=== PATIENT | female | born 1960 | race Caucasian/White ===

== ENCOUNTER 2018-09-30 16:06 | Outpatient (CLI) ==
--- NOTE | 2018-09-30 16:50 | DI ---
EXAM: Two views of the chest. History: Short of breath and cough. Comparison: Chest radiograph 01/24/2016 Findings: Heart size is normal. No focal consolidation. No appreciable pleural fluid and no pneumo thorax. No acute osseous abnormalities. Impression: No acute cardiopulmonary process.
--- NOTE | 2018-10-01 06:48 | DI ---
EXAM: Thoracic spine radiographs. HISTORY: Back pain. COMPARISON: None available. TECHNIQUE: Frontal, lateral and swimmer's views. FINDINGS: The normal curvature and alignment are maintained. Vertebral body and intervertebral disc heights are normal. Mild multilevel endplate osteophyte formation noted, greatest at T11-12. No fr acture or subluxation seen. Adjacent soft tissues are unremarkable. IMPRESSION: Mild degenerative disc disease.
--- NOTE | 2018-10-01 06:49 | DI ---
EXAM: Lumbar spine radiographs. HISTORY: Back pain. COMPARISON: None available. TECHNIQUE: Three views of the lumbar spine. FINDINGS: The normal curvature and alignment are maintained. Vertebral body and intervertebral disc heights are normal. No fracture or subluxation identified. Multilevel facet arthropathy noted, mod erate in the lower lumbar spine. Sacral arcuate lines are intact. Soft tissues are unremarkable. IMPRESSION: Multilevel facet arthropathy, moderate in the lower lumbar spine.
== END 2018-09-30 16:07 | disposition home or self-care (01) ==
LOC: RAD 16:06
PROVIDERS: ATTEND Internal Medicine
DX: R06.02 Shortness of breath (principal); R05 Cough

== ENCOUNTER 2018-10-03 14:02 | Observation (INO) ==
[2018-10-03] MEDS ORDERED: TYLENOL PO PRN (14:45)
[2018-10-03] MEDS ORDERED: VISTARIL INJ IM PRN (14:45)
[2018-10-03] MEDS ORDERED: ATROPINE SULFATE PFS IVP PRN (14:45)
[2018-10-03] MEDS ORDERED: NITROSTAT SL PRN (14:45)
[2018-10-03 15:11] VITALS: BMI 20.7
[2018-10-03] MEDS: PROTONIX PO SCH ×2 (16:22→17:43)
[2018-10-03] MEDS: SODIUM CHLORIDE 1,000 ML IV SCH (16:22)
--- NOTE | 2018-10-03 16:51 | CT ---
EXAM: CT chest with and without contrast HISTORY: Shortness of breath COMPARISON: Chest x-ray 09/30/2018 and 01/24/[address] abdomen pelvis TECHNIQUE: Serial axial images of the chest were obtained after and before 75 ml of Omnipaque IV con trast was administered. These were obtained from the lung apices to the upper abdomen. FINDINGS: The thyroid is normal. Visualized vessels demonstrate mild atherosclerotic disease. Ther e is no dissection, aneurysm or stenosis. The heart is normal in size without pericardial effusion. There is no mediastinal, hilar or axillary pathologically enlarged lymph nodes. There are calcified mediastinal and hilar lymph nodes. There is no pneumothorax or pleural effusion. There is a 0.5 cm pulmonary nodule in the anterior rig ht upper lobe on image 35. These there is minimal fibrosis in the right lung base. There is mild ce ntral lobular ground-glass nodularity in the right lower lobe on image 37. There is no additional co nsolidation, nodule or mass. The airways are patent. Soft tissues in the upper abdomen will be evaluated on same day CT abdomen pelvis. There is mild sc attered degenerative disease of the spine. There is no new displaced rib fracture. IMPRESSION: 1. Central lobular ground-glass nodularity in the right lower lobe with minimal fibrosis suggestive of small airways inflammation. 2. 0.5 pulmonary nodule in the anterior right upper lobe. Recommend follow-up CT in 6 months. 3. Sequela of old granulomatous disease and mild scattered degenerative change.
[2018-10-03] MEDS: ATIVAN PO PRN (18:20)
--- NOTE | 2018-10-04 01:03 | CT ---
Exam: CT of the abdomen and pelvis without and with contrast History: Nausea Technique: [address] of the abdomen and pelvis pre and post intravenous contrast FINDINGS: The lung bases are clear. No significant liver abnormality. The adrenals, pancreas and s pleen are unremarkable. The stomach and hiatus are unremarkable.The gallbladder appears normal. Kid neys and proximal collecting system are unremarkable. The appendix is not seen. Bowel loops demonst rate normal caliber. No inflamatory change seen in the mesentery or retroperitoneum. Vascular struc tures appear normal. Pelvic genitourinary structures appear normal. Trace pelvic fluid. Pelvic bowel loops are unremarka ble. No inflammatory change in the pelvic fat. No acute abnormality of the abdominal or pelvic skel eton. Impression: 1. No inflammatory process, bowel or urinary obstruction is seen. 2. Trace pelvic fluid is nonspecific
[2018-10-04] MEDS: SYNTHROID PO SCH (05:38)
[2018-10-04] MEDS: PROTONIX PO SCH ×2 (05:38→18:18)
[2018-10-04] MEDS: ASPIRIN EC PO SCH (08:48)
[2018-10-04] MEDS: SYMBICORT 80-4.5 MCG INHALER IH SCH ×2 (08:49→21:01)
--- NOTE | 2018-10-04 08:51 | PCM.PROG ---
Attending Provider: ATTENDING PROVIDER: Dr. TRAVIS PENN DATE OF SERVICE: 10/04/18 SUBJECTIVE: This 57 year old WHITE/ F was hospitalized 10/03/18 with shortness of breath, inability to take deep breaths at times give her a panic type of problem and she gets really worked up. No PND, no orthopnea. No exertional chest discomfort. No fever, no chills. No cough. is in the room. REVIEW OF SYSTEMS: CONSTITUTIONAL: No night sweats. No fatigue, malaise, lethargy. No fever or chills. HEENT: Eyes: No visual changes. No eye pain. No eye discharge. ENT: No runny nose. No epistaxis. No sinus pain. No odynophagia. No congestion. RESPIRATORY: No cough, no congestion. No hemoptysis. No shortness of breath. CARDIOVASCULAR: No angina symptoms. No CHF symptoms. No atypical chest pain for CAD. No palpitations. No orthopnea.. GASTROINTESTINAL: No abdominal pain. No nausea or vomiting. No diarrhea or constipation. No hematemesis. No hematochezia. GENITOURINARY: No urgency. No frequency. No dysuria. No hematuria. No obstructive symptoms. No discharge. No pain. No significant abnormal bleeding. MUSCULOSKELETAL: No musculoskeletal pain; no joint swelling. NEUROLOGICAL: Awake, alert, oriented to time, place and person. No headache. No neck pain. No syncope. No seizures. No dizziness. PSYCHIATRIC: Not anxious. No depression. No suicidal thoughts. No homicidal thoughts. SKIN: No rash. No lesions. No wounds. ENDOCRINE: No unexplained weight loss. No weight gain. HEMATOLOGIC/LYMPHATIC: No anemia. No purpura. No petechiae. No prolonged or excessive bleeding. No palpable lymph nodes. PHYSICAL EXAMINATION: GENERAL: The patient is awake, alert and oriented, lying in bed in no distress. VITAL SIGNS: Temperature 97.9 F, Pulse 57, Respiratory Rate 18, BP 100/63, Pulse Ox 99% HEENT: Head normocephalic, atraumatic. Eyes: Extraocular muscles are intact. Pupils are equal, round and reactive to light and accommodation. Ears: No lesions. Nose appeared normal. Throat: No exudate or erythema. NECK: Supple. No JVD, no carotid bruit. No lymphadenopathy or thyromegaly. LUNGS: Decreased breath sounds. Clear to auscultation. Percussion note normal. Chest symmetrical. HEART: S1, S2, no S3. No murmurs. No cyanosis or clubbing. No ascites. Pulses: Dorsalis pedis and posterior tibial pulses +1 to +2 both sides. ABDOMEN: Soft. Non-tender. Bowel sounds active. No CVA tenderness. No mass felt. EXTREMITIES: No edema. Full range of motion of all extremities, equal. NEUROLOGIC: No focal deficit. Cranial nerves II through XII are grossly intact. No headache, no double vision or headache. SKIN: Warm and dry. Intact. Turgor-normal. LYMPHATIC: No palpable lymph nodes/no lymphedema. MUSCULOSKELETAL: Normal joints with no swelling. Muscle tone is normal. LAB REVIEW: 10/04/18 05:06 10/04/18 05:06 10/04/18 05:06: Sodium 142.6, Potassium 3.98, Chloride 107.4 H, Carbon Dioxide 27.5, Anion Gap 11.68, BUN 14.3, Creatinine 0.63, Estimated GFR (MDRD) 97.00, BUN/Creatinine Ratio 22.69, Glucose 87.3, Calcium 9.36, Total Bilirubin 1.02, AST 22.8, ALT 17.7, Alkaline Phosphatase 58.5, Total Protein 6.49, Albumin 3.95 , Globulin 2.54, Albumin/Globulin Ratio 1.55 10/04/18 05:06: WBC 3.99 L, RBC 4.30, Hgb 12.8, Hct 37.9, MCV 88.1, MCH 29.8, MCHC 33.8, RDW Coeff of Vandana 11.9, Plt Count 175, Immature Gran % (Auto) 0.3, Neut % (Auto) 56.6, Lymph % (Auto) 31.8, [place] % (Auto) 6.8, Eos % (Auto) 4.0, Baso % (Auto) 0.5, Immature Gran # (Auto) 0.0, Neut # (Auto) 2.3, Lymph # (Auto ) 1.3, [place] # (Auto) 0.3 L, Eos # (Auto) 0.2, Baso # (Auto) 0.0 10/03/18 23:02: Total Creatine Kinase 101.3, Troponin I < 0.012 10/03/18 15:37: Urine Color Yellow, Urine Clarity Clear, Urine pH 5.0, Ur Specific [place] 1.020, Urine Protein Negative, Urine Glucose (UA) Negative, Urine Ketones 3+, Urine Blood Negative, Urine Nitrite Negative, Urine Bilirubin Negative, Urine Urobilinogen 0.2, Ur Leukocyte Esterase Negative 10/03/18 15:05: D-Dimer (Manual) 392.01 10/03/18 15:05: Sodium 142.5, Potassium 3.58, Chloride 106.1, Carbon Dioxide 25.9, Anion Gap 14.08, BUN 14.7, Creatinine 0.65, Estimated GFR (MDRD) 94.00, BUN/Creatinine Ratio 22.61, Glucose 93.5, Calcium 9.54, Total Bilirubin 1.05, AST 27.0, ALT 19.4, Alkaline Phosphatase 72.0, Total Creatine Kinase 118.5, CK- MB (CK-2) 4.220 H, CK-MB (CK-2) % 3.5600, Troponin I < 0.012, NT-Pro-B Natriuret Pep 109.000, Total Protein 7.23, Albumin 4.53, Globulin 2.70, Albumin/ Globulin Ratio 1.67, TSH 0.182 L 10/03/18 15:05: WBC 4.86, RBC 4.72, Hgb 14.0, Hct 41.1, MCV 87.1, MCH 29.7, MCHC 34.1, RDW Coeff of Vandana 11.8, Plt Count 198, Immature Gran % (Auto) 0.2, Neut % (Auto) 69.4, Lymph % (Auto) 23.3, [place] % (Auto) 5.1, Eos % (Auto) 1.6, Baso % (Auto) 0.4, Immature Gran # (Auto) 0.0, Neut # (Auto) 3.4, Lymph # (Auto ) 1.1, [place] # (Auto) 0.3 L, Eos # (Auto) 0.1, Baso # (Auto) 0.0 10/03/18 15:05: Free T4 1.[address] with and without contrast 10/03/18: 1) Central lobular ground glass nodularity in the right lower lobe with minimal fibrosis suggestive of small airways inflammation; 2) 0.5 pulmonary nodule in the anterior right upper lobe. Recommend followup CT in 6 months; 3) Sequela of old granulomatous disease and mild scattered degenerative change. CT of the abdomen and pelvis with and without contrast 10/03/18: 1) No inflammatory process, bowel or urinary obstruction is seen; 2) Trace pelvic fluid is nonspecific. ASSESSMENT: 1. Shortness of breath could be related to lung problem with emphysema along with panic attack, GERD type of symptoms. 2. Cancer phobia. 3. Hypothyroidism. PLAN: 1. Waiting on echocardiogram and PFT reports. 2. Barium swallow. 3. PFT. 4. Symbicort two puffs now and b.i.d. Plan and coordination of the patient's care discussed in the presence of Speech And Language Specialist and nurse. CONDITION: Stable SCRIBED BY: WAYLON RIVERA [facility] scribed while in presence of service performed by Dr. TRAVIS PENN on 10/04/18 ([id number])
[2018-10-04] MEDS: SODIUM CHLORIDE 1,000 ML IV SCH (11:12)
--- NOTE | 2018-10-04 11:16 | HP ---
DATE OF SERVICE: 10/03/18 HISTORY OF PRESENT ILLNESS: This 57-year-old female presented to the office to review chest x-ray , and T-spine x-rays. She is very short of breath today, couldn't walk 10 feet without stopping. Ativan not helping. No dysphagia. PAST MEDICAL HISTORY: Panic disorder Hypothyroidism Anemia JUAN Insomnia Dyslipidemia PAST SURGICAL HISTORY: Lymph nodes removed - cat bite virus REVIEW OF SYSTEMS: CONSTITUTIONAL: Fatigue. No fever. HEENT: Positive for sinus drainage. No sore throat. RESPIRATORY: No cough. No hemoptysis. CARDIOVASCULAR: Shortness of breath. No atypical chest pain for coronary artery disease. No angina, CHF symptoms or palpitations. GASTROINTESTINAL: Epigastric pain. No melena. No GERD. GENITOURINARY: No hematuria, no prostatism, no polyuria. SKILLS INSTRUCTOR: No blackout, no dizziness, no headache, no double vision. MUSCULOSKELETAL: No osteoarthritis pain, no joint swelling. ENDOCRINE: No weight loss, no weight gain. SKIN: Not dry, no rash. PSYCHIATRIC: Anxious. No depression, no suicidal thoughts, no homicidal thoughts. SOCIAL HISTORY: Marital Status: and lives with . Alcohol Usage: Occasional wine . Tobacco Usage: Nonsmoker. Two children. No history of illicit drug use. FAMILY HISTORY: Father and mother both living. MEDICATIONS: Ativan 0.5 mg p.o. b.i.d. p.r.n. Synthroid Tramadol 50 mg 1-2 h.s. Klonopin 0.5 mg 1-2 h.s. Synthroid 50 mcg second week Niferex 50 mg b.i.d. ALLERGIES: CODEINE, PERCOCET MENSTRUAL HISTORY: Mammogram 09-19 [facility] Department PHYSICAL EXAMINATION: V/S: Pulse 73, BP 102/66, 02 sat 98%. Height 5'4", Weight 118.6. BMI 20.3. GENERAL APPEARANCE: Oriented times three. HEENT: Normal. NECK: No JVP, no bruits. RESPIRATORY: Decreased breath sounds. Lungs are clear. CARDIOVASCULAR: S1, S2, no S3, no murmurs. No cyanosis, clubbing. No ascites. GI/ABDOMEN: Epigastric tenderness. Bowel sounds are active. EXTREMITIES: edema, pulses +1, equal. SKILLS INSTRUCTOR: Deep tendon reflexes, sensory, motor and gait all normal. RECTAL/PELVIC: .Colonoscopy - patient refused. Pelvic: [facility] 09/19. Mammogram 2013. Colocare: The patient refused. ASSESSMENT: 1. SHORTNESS OF BREATH 2. ANXIETY 3. PANIC DISORDER 4. HYPOTHYROIDISM 5. ANEMIA 6. JUAN 7. INSOMNIA 8. DYSLIPIDEMIA PLAN: 1. Admit 2. Routine telemetry orders 3. CBC, CMP today and daily 4. CT chest, abdomen and pelvis with and without 5. T4 and TSH 6. Ativan 1 mg p.o t.i.d. p.r.n. 7. Echocardiogram 2D 8. NS IV @ 50 cc/hr 9. Regular diet 10. Protonix 40 mg b.i.d. p.o. 11. D. Dimer 12. BNP 13. PFT TIME SPENT: More than 70 minutes. MTDD
[2018-10-04] MEDS: ATIVAN PO PRN ×2 (12:05→21:01)
[2018-10-04] MEDS ORDERED: DECADRON 4 MG/ML SDV IM STA (13:07)
[2018-10-04] MEDS ORDERED: GI COCKTAIL PO PRN (13:13)
[2018-10-05] MEDS: PROTONIX PO SCH (06:04)
[2018-10-05] MEDS: SYNTHROID PO SCH (06:04)
[2018-10-05] MEDS: SODIUM CHLORIDE 1,000 ML IV SCH (07:23)
[2018-10-05] MEDS: SYMBICORT 80-4.5 MCG INHALER IH SCH (08:27)
[2018-10-05] MEDS: ATIVAN PO PRN (08:27)
[2018-10-05] MEDS: ASPIRIN EC PO SCH (08:27)
[2018-10-05] MEDS ORDERED: LEXAPRO PO SCH ×2 (09:00→21:00)
[2018-10-05] MEDS ORDERED: ZANTAC PO SCH (09:00)
--- NOTE | 2018-10-05 09:28 | PCM.PROG ---
Attending Provider: ATTENDING PROVIDER: Dr. TRAVIS EPNN This patient is seen with Jesi Arana, Nurse Practitioner. DATE OF SERVICE: 10/05/18 SUBJECTIVE: This 57 year old WHITE/ F was hospitalized 10/03/18. The patient is sitting in bed resting comfortably. She is still very anxious. Shortness of breath has improved with exertion. She still describes not being able to take a deep breath. She is scheduled for upper GI this morning. The patient's is in the room. REVIEW OF SYSTEMS: CONSTITUTIONAL: No night sweats. No fatigue, malaise, lethargy. No fever or chills. HEENT: Eyes: No visual changes. No eye pain. No eye discharge. ENT: No runny nose. No epistaxis. No sinus pain. No odynophagia. No congestion. RESPIRATORY: Shortness of breath. No cough, no congestion. No hemoptysis. CARDIOVASCULAR: No angina symptoms. No CHF symptoms. No atypical chest pain for CAD. No palpitations. No orthopnea.. GASTROINTESTINAL: No abdominal pain. No nausea or vomiting. No diarrhea or constipation. No hematemesis. No hematochezia. GENITOURINARY: No urgency. No frequency. No dysuria. No hematuria. No obstructive symptoms. No discharge. No pain. No significant abnormal bleeding. MUSCULOSKELETAL: No musculoskeletal pain; no joint swelling. NEUROLOGICAL: Awake, alert, oriented to time, place and person. No headache. No neck pain. No syncope. No seizures. No dizziness. PSYCHIATRIC: Anxious. No depression. No suicidal thoughts. No homicidal thoughts. SKIN: No rash. No lesions. No wounds. ENDOCRINE: No unexplained weight loss. No weight gain. HEMATOLOGIC/LYMPHATIC: No anemia. No purpura. No petechiae. No prolonged or excessive bleeding. No palpable lymph nodes. PHYSICAL EXAMINATION: GENERAL: The patient is awake, alert and oriented, lying in bed in no distress. VITAL SIGNS: Temperature 98.1 F, Pulse 64, Respiratory Rate 18, BP 105/65, Pulse Ox 98% HEENT: Head normocephalic, atraumatic. Eyes: Extraocular muscles are intact. Pupils are equal, round and reactive to light and accommodation. Ears: No lesions. Nose appeared normal. Throat: No exudate or erythema. NECK: Supple. No JVD, no carotid bruit. No lymphadenopathy or thyromegaly. LUNGS: Clear to auscultation. Percussion note normal. Chest symmetrical. HEART: S1, S2, no S3. No murmurs. No cyanosis or clubbing. No ascites. Pulses: Dorsalis pedis and posterior tibial pulses +1 to +2 both sides. ABDOMEN: Soft. Non-tender. Bowel sounds active. No CVA tenderness. No mass felt. EXTREMITIES: No edema. Full range of motion of all extremities, equal. NEUROLOGIC: No focal deficit. Cranial nerves II through XII are grossly intact. No headache, no double vision or headache. SKIN: Not dry. Intact. Turgor-normal. LYMPHATIC: No palpable lymph nodes/no lymphedema. MUSCULOSKELETAL: Normal joints with no swelling. Muscle tone is normal. LAB REVIEW: 10/05/18 04:54 10/05/18 04:54 10/05/18 04:54: Sodium 142.9, Potassium 3.81, Chloride 110.5 H, Carbon Dioxide 24.5, Anion Gap 11.71, BUN 11.7, Creatinine 0.59 L, Estimated GFR (MDRD) 105.00 , BUN/Creatinine Ratio 19.83, Glucose 89.6, Calcium 9.38, Total Bilirubin 0.85, AST 21.4, ALT 16.6, Alkaline Phosphatase 61.3, Total Protein 6.45, Albumin 3.88 , Globulin 2.57, Albumin/Globulin Ratio 1.50 10/05/18 04:54: WBC 6.53, RBC 4.20, Hgb 12.5, Hct 36.7 L, MCV 87.4, MCH 29.8, MCHC 34.1, RDW Coeff of Vandana 11.8, Plt Count 185, Immature Gran % (Auto) 0.3, Neut % (Auto) 75.5, Lymph % (Auto) 18.4, [place] % (Auto) 5.2, Eos % (Auto) 0.3, Baso % (Auto) 0.3, Immature Gran # (Auto) 0.0, Neut # (Auto) 4.9, Lymph # (Auto ) 1.2, [place] # (Auto) 0.3 L, Eos # (Auto) 0.0, Baso # (Auto) 0.0 ASSESSMENT: 1. Shortness of breath could be related to lung problem with emphysema along with panic attack, GERD type of symptoms. 2. Cancer phobia. 3. Hypothyroidism. PLAN: 1. Upper GI today 2. Decrease Synthroid to 75 mcg. 3. Zantac 150 mg b.i.d. 4. H. pylori 5. Lexapro 5 mg daily for one week then increase to 10 mg daily Plan and coordination of the patient's care discussed in the presence of Supervisor Baking and nurse. CONDITION: Stable SCRIBED BY: WAYLON RIVERA Die Maker Apprentice scribed while in presence of service performed by Dr. Penn/Jesi Arana APRN on 10/05/18 ([id number])
--- NOTE | 2018-10-05 11:05 | DI ---
EXAM: Fluoroscopic upper GI HISTORY: GERD and shortness of breath. COMPARISON: CT abdomen pelvis 10/03/2018 FINDINGS: Real time fluoroscopic evaluation was performed by Dr. Viraj Villareal. Effervescent reyna ls were administered to patient. Fluoroscopic evaluation demonstrates a normal stripping wave. There is no filling defect, mass or stenosis. There is normal passage of contrast from the distal esophag us into the stomach. There is no visualized mass or abnormality in the stomach. Contrast passes int o the duodenum and crosses midline without evidence of malrotation. There is no visualized gastroeso phageal reflux. IMPRESSION: 1. No gastroesophageal reflux is present. 2. No fluoroscopic abnormality of the esophagus and no evidence of malrotation.
--- NOTE | 2018-10-05 13:08 | ECHOSTRESS ---
Date of Exam: 10/05/18 Ordering Physician: DR. TRAVIS PENN Reason for Echo: SOB, STRESS TEST--NO ISCHEMIA M-Mode Normal Adult Results LV Dimensions Normal Adult Results AoV Opening excursions >1.6 LVEDD-base- 3.5-5.8 Ao root dimensions 2.0-3.7 LVESD-base- 3.1-4.6 L. Atrium dimensions 1.9-3.8 Post. Wall thickness 0.8-1.1 IV septum (thickness) 0.7-1.2 Post. Wall excursion 0.72-1.3 Septal motion Systolic motion R. Ventricular cavity 1.5-2.0 LVEF 60% Paradoxical septal wall motion 2-D: NORMAL LEFT VENTRICULAR CONTRACTILITY--RESTING AND POST EXERCISE M-MODE: MV: AV: TV: PV: CHAMBER SIZE: WALL MOTION: NORMAL LEFT VENTRICULAR CONTRACTILITY--RESTING AND POST EXERCISE PERICARDIUM: INTERPRETATION: 1. NORMAL LEFT VENTRICULAR CONTRACTILITY--RESTING AND POST EXERCISE MTDD
--- NOTE | 2018-10-05 13:15 | ECHO2D ---
Date of Exam: 10/05/18 Ordering Physician: DR. TRAVIS PENN Room #: [id number] Reason for Echo: SOA, ANXIETY M-Mode Normal Adult Results LV Dimensions Normal Adult Results AoV Opening excursions >1.6 >1.6 LVEDD-base- 3.5-5.8 4.0 Ao root dimensions 2.0-3.7 3.1 LVESD-base- 3.1-4.6 L. Atrium dimensions 1.9-3.8 3.6 Post. Wall thickness 0.8-1.1 0.9 IV septum (thickness) 0.7-1.2 1.0 Post. Wall excursion 0.72-1.3 NORMAL Septal motion NORMAL Systolic motion R. Ventricular cavity 1.5-2.0 NORMAL LVEF 60% 62% Paradoxical septal wall motion NORMAL 2-D : 2-D M Mode Echocardiogram was performed using apical four chamber and left parasternal long and short axis views. Mitral Valve Prolapse noted. Tricuspid and aortic valves appear to be normal. Contractility of the left ventricle seems to be normal, so is the cavity size. Left atrial cavity size and aortic root appear to be normal. There is no pericardial effusion. There is no thrombus noted in the left ventricular or left aortic cavity. No mitral valve prolapse noted. M-MODE: MV: MITRAL VALVE PROLAPSE LATE SYSTOLIC AV: NORMAL TV: NORMAL PV: CHAMBER SIZE: NORMAL WALL MOTION: NORMAL PERICARDIUM: NORMAL INTERPRETATION: 1. MITRAL VALVE PROLAPSE LATE SYSTOLIC 2. NORMAL LEFT VENTRICULAR CONTRACTILITY 3. NORMAL VALVES MTDD
--- NOTE | 2018-10-05 13:21 | STRESSECHO ---
Date of Test: 10/05/18 Ordering Physician: DR. TRAVIS PENN Occupation: RETIRED Reason for Exam: SOB, ANXIETY Smoking History: NONE Height: 64" Weight: 120 LBS Current Medications: ATROPINE, SYMBICORT, LEXAPRO, VISTARIL, SYNTHROID, ATIVAN, NITROSTAT, PROTONIX, ZANTAC Resting EKG: SINUS RHYTHM/ NO ACUTE CHANGES Target Heart Rate: 137/162 S-T SEGMENT STAGE MPH/GRADE HEART RATE BPM BLOOD PRESSURE MMHG RHYTHM +/- ELEVATION DEPRESSION SYMPTOMS AT REST 68 BPM 120/80 MMHG SR X NONE 1 1.7/10% 109 BPM 120/76 MMHG SR X NONE 2 2.5/12% 132/74 MMHG SR X NONE 3 3.4/14% 4 4.2/16% 5 5.0/18% Immediately After 137 BPM 136/74 MMHG SR X REACHED TARGET HR Minutes Post Exercise 4:00 70 BPM 120/80 MMHG SR X NONE Minutes Post Exercise DURATION OF EXERCISE: 7:42 MAXIMUM HEART RATE REACHED: 137 BPM REASON FOR TERMINATION: REACHED TARGET HR 98% OXYGEN SATURATION WITH EXERCISE ON ROOM AIR METS 10.1 INTERPRETATION: 1. NO EVIDENCE OF ISCHEMIA BY ST-T WAVE 2. NO CHEST PAIN OR DISCOMFORT 3. BLOOD PRESSURE RESPONSE NORMAL 4. NO ARRHYTHMIAS NORMAL LEFT VENTRICULAR CONTRACTILITY--RESTING AND POST EXERCISE MTDD
--- NOTE | 2018-10-05 14:31 | CM.DICTOOL ---
ADMISSION: 10/03/18 14:02 DISCHARGE: 10/05/18 DATE OF SERVICE: 10/05/18 FINAL DIAGNOSIS EMPHYSEMA/PULMONARY FIBROSIS LUNG NODULE 0.5 CM, ANTERIOR RIGHT UPPER LOBE SHORTNESS OF BREATH ANXIETY/PANIC HYPOTHYROIDISM MITRAL VALVE PROLAPSE LYMPH NODE REMOVAL, LEFT ARM, 2018 (FROM INSECT BITE) BILATERAL LASIK SURGERY NEVER SMOKER LAST VITALS Temp Pulse Resp BP Pulse Ox 98.1 F 64 18 105/65 99 10/05/18 06:00 10/05/18 06:00 10/05/18 06:00 10/05/18 06:00 10/05/18 10:00 TAKE THESE MEDICATIONS AT HOME Albuterol Hfa (Ventolin Hfa) 18 grams IH BID PRN for SOB Escitalopram Oxalate (Lexapro) 5 mg PO BEDTIME X6 DAYS JUANITO Stop: 10/11/18 21:01 Escitalopram Oxalate (Lexapro) 10 mg PO DAILY, BEGIN ON 10/11/18 Levothyroxine Sodium (Synthroid) 75 mcg PO QDAC JUANITO Lorazepam (Ativan) 1 mg PO TID PRN PRN Reason: Anxiety Last Admin: 10/05/18 08:27 Dose: 1 mg ALLERGIES codeine Adverse Reaction (Verified 10/04/18 06:11) NEW PRESCRIPTIONS: Albuterol Sulfate [Ventolin Hfa] 18 gm IH BID PRN #1 hfa.[email or web address] 10/05/18 Escitalopram Oxalate [Lexapro] 10 mg PO DAILY #30 tablet 10/05/18 Levothyroxine Sodium [Synthroid] 75 mcg PO QDAC #30 tablet 10/05/18 SMOKING: NEVER SMOKER DISEASE SPECIFIC EDUCATION: GERD PANIC ATTACKS/ANXIETY EMPHYSEMA HOME MEDICATIONS AND CHANGES MADE DURING THIS STAY NEW PRESCRIPTIONS REFERRAL TO GASTROENTEROLOGY FOLLOW UP LAB REVIEW: 10/05/18 04:54 10/05/18 04:54 10/05/18 13:10: Stool H. pylori Ag Negative 10/05/18 04:54: Sodium 142.9, Potassium 3.81, Chloride 110.5 H, Carbon Dioxide 24.5, Anion Gap 11.71, BUN 11.7, Creatinine 0.59 L, Estimated GFR (MDRD) 105.00 , BUN/Creatinine Ratio 19.83, Glucose 89.6, Calcium 9.38, Total Bilirubin 0.85, AST 21.4, ALT 16.6, Alkaline Phosphatase 61.3, Total Protein 6.45, Albumin 3.88 , Globulin 2.57, Albumin/Globulin Ratio 1.50 10/05/18 04:54: WBC 6.53, RBC 4.20, Hgb 12.5, Hct 36.7 L, MCV 87.4, MCH 29.8, MCHC 34.1, RDW Coeff of Vandana 11.8, Plt Count 185, Immature Gran % (Auto) 0.3, Neut % (Auto) 75.5, Lymph % (Auto) 18.4, Motley % (Auto) 5.2, Eos % (Auto) 0.3, Baso % (Auto) 0.3, Immature Gran # (Auto) 0.0, Neut # (Auto) 4.9, Lymph # (Auto ) 1.2, Motley # (Auto) 0.3 L, Eos # (Auto) 0.0, Baso # (Auto) 0.0 PLAN: DISCHARGE HOME TODAY, 10/05/[address] PENN IN HIS OFFICE ON 10/14/18 AT 10:30 A.M. KEEP YOUR APPOINTMENT WITH LOW LOPEZOLOGYBLAYNE/DR. POPE, ON AT 1:45 P.M. [address] [facility] [address], [address] [facility]# [phone] RESUME YOUR HOME MEDICATIONS PER LIST PROVIDED BY THE NURSING STAFF PLEASE NOTE THE DECREASE IN YOUR SYNTHROID FROM 100 MCG DAILY TO 75 MCG DAILY NEW PRESCRIPTIONS LEXAPRO 10 MG, TAKE ONE-HALF TABLET (5 MG) BY MOUTH FOR 6 DAYS, THEN TAKE ONE TABLET BY MOUTH DAILY SYNTHROID 75 MCG, TAKE ONE TABLET BY MOUTH FIRST THING IN THE MORNING ON AN EMPTY STOMACH VENTOLIN INHALER, TAKE TWO PUFFS TWICE DAILY IF NEEDED (PRN) FOR SHORTNESS OF BREATH DIET HEALTHY HEART TOLERATED ACTIVITY GET PLENTY OF REST AT HOME. GRADUALLY INCREASE YOUR ACTIVITY LEVEL ACCORDING TO YOUR TOLERATION SUMMARY THE PATIENT IS ALERT AND ORIENTED X3. SHE CURRENTLY RESIDES AT HOME WITH HER SPOUSE. SHE IS INDEPENDENT WITH ADL'S AND REQUIRES NO DME, HOME HEALTH OR HOMEMAKING SERVICES. SHE DESIRES TO RETURN HOME AT DISCHARGE. HER SKIN TURGOR IS INTACT AND WITHOUT DECUBITUS ULCERS. HYDRATION AND NUTRITIONAL STATUS ARE GOOD. THE PATIENT IS ABLE TO BE UP AND ABOUT WITHOUT EXPERIENCING ANY SHORTNESS OF BREATH. SHE IS AWARE OF THE REFERRAL APPOINTMENT MADE WITH GASTROINTESTINAL SPECIALTY (DR. POPE) AT [facility] IN [place], [place] FOR NEXT WEEK. SHE IS AGREEABLE TO KEEP THIS APPOINTMENT. CURRENT CODE STATUS FULL CODE MARVIN CHERY APRN TRAVIS PENN M.D.
[2018-10-05 14:42] VITALS: BP 95/61; TEMP 98
[2018-10-06] MEDS ORDERED: SYNTHROID PO SCH ×2 (06:30)
--- NOTE | 2018-10-06 13:04 | PN ---
DATE OF SERVICE: 10/05/18 SUBJECTIVE: The patient was seen and examined today. The patient's condition is stable. She has been started on Lexapro. The side effects discussed. If she gets more depressed or suicidal, she should stop the medicine and go to the emergency room. The patient had echocardiogram done which showed mitral valve prolapse, normal LV contractility, normal 2D and M-Mode echo. Otherwise, stress echo was negative for ischemia at higher level of exercise. She achieved mets of 9. She reached her target heart rate with no ST-T wave changes. Oxygen saturation was normal. The patient has pulmonary fibrosis. No history of smoking or any exposure to any respiratory allergens. Her exercise tolerance is normal. PFT was normal. She will be referred to Pulmonary M.D. for evaluation for her pulmonary problem even though her exercise capacity is normal. The patient is feeling like she is not getting enough breath, likely from depression and panic type of disorder. PHYSICAL EXAMINATION: HEENT: Head normocephalic, atraumatic. Eyes: Extraocular muscles are intact. Pupils are equal, round and reactive to light and accommodation. Ears: No lesions. Nose appeared normal. Throat: No exudate or erythema. NECK: Supple. No JVD, no carotid bruit. No lymphadenopathy or thyromegaly. LUNGS: Clear to auscultation. Percussion note normal. Chest symmetrical. HEART: S1, S2, no S3. No murmurs. No cyanosis or clubbing. No ascites. Pulses: Dorsalis pedis and posterior tibial pulses +1 to +2 bilaterally. ABDOMEN: Soft. Nontender. Bowel sounds active. No CVA tenderness. No mass felt. EXTREMITIES: No edema. Full range of motion of all extremities, equal. NEUROLOGIC: No focal deficit. Cranial nerves II through XII are grossly intact. No headache, no double vision or headache. SKIN: Not dry. Intact. Turgor - normal. LYMPHATIC: No palpable lymph nodes/no lymphedema. MUSCULOSKELETAL: Normal joints with no swelling. Muscle tone is normal. The patient has mitral valve prolapse with no mitral regurgitation, late systolic mitral valve prolapse. The patient knows about it. The patient's condition is stable. She will be discharged home. TIME SPENT: More than 30 minutes. Plan and coordination of the patient's care discussed in the presence of nurse. CHRIS
--- NOTE | 2018-10-06 13:25 | DS ---
DATE OF SERVICE: 10/05/18 FINAL DIAGNOSIS: 1. EMPHYSEMA/PULMONARY FIBROSIS 2. LUNG NODULE 0.5 CM, ANTERIOR RIGHT UPPER LOBE 3. SHORTNESS OF BREATH 4. ANXIETY/PANIC 5. HYPOTHYROIDISM 6. MITRAL VALVE PROLAPSE 7. LYMPH NODE REMOVAL, LEFT ARM, 2018 (FROM INSECT BITE) 8. BILATERAL LASIK SURGERY 9. NEVER SMOKER VITAL SIGNS AT DISCHARGE: Temperature 98.1, pulse 64, respiratory rate 18, BP 105/65, pulse ox 99 DISCHARGE INSTRUCTIONS: 1. RETURN TO SEE DR. PENN IN HIS OFFICE ON 10/14/18 AT 10:30 A.M. 2. KEEP YOUR APPOINTMENT WITH LOW LOPEZOLOGYBLAYNE/DR. POPE, ON 10/12/18 AT 1:45 P.M., [address] [place] [address], [facility] [address], [address], [facility]# [phone]. MEDICATIONS AT DISCHARGE: Albuterol Hfa (Ventolin Hfa) 18 grams IH BID PRN for SOB Escitalopram Oxalate (Lexapro) 5 mg PO BEDTIME X6 DAYS JUANITO Stop: 10/11/18 21:01 Escitalopram Oxalate (Lexapro) 10 mg PO DAILY, BEGIN ON 10/11/18 Levothyroxine Sodium (Synthroid) 75 mcg PO QDAC JUANITO Lorazepam (Ativan) 1 mg PO TID PRN PRN Reason: Anxiety Last Admin: 10/05/18 08:27 Dose: 1 mg PLEASE NOTE THE DECREASE IN YOUR SYNTHROID FROM 100 MCG DAILY TO 75 MCG DAILY NEW PRESCRIPTIONS: LEXAPRO 10 MG, TAKE ONE-HALF TABLET (5 MG) BY MOUTH FOR 6 DAYS, THEN TAKE ONE TABLET BY MOUTH DAILY SYNTHROID 75 MCG, TAKE ONE TABLET BY MOUTH FIRST THING IN THE MORNING ON AN EMPTY STOMACH VENTOLIN INHALER, TAKE TWO PUFFS TWICE DAILY IF NEEDED (PRN) FOR SHORTNESS OF BREATH DIET INSTRUCTIONS: HEALTHY HEART TOLERATED ACTIVITY: GET PLENTY OF REST AT HOME. GRADUALLY INCREASE YOUR ACTIVITY LEVEL ACCORDING TO YOUR TOLERATION SMOKING: Never smoker DISEASE SPECIFIC EDUCATION: GERD PANIC ATTACKS/ANXIETY EMPHYSEMA HOME MEDICATIONS AND CHANGES MADE DURING THIS STAY NEW PRESCRIPTIONS REFERRAL TO GASTROENTEROLOGY FOLLOW UP HOSPITAL COURSE: 57-year-old white female hospitalized with shortness of breath and anxiety, panic type of disorder, mostly feeling like she is not getting enough deep breaths. The patient underwent reflux type symptom workup with upper GI. The patient did not have any reflux. Her CT scan of the chest showed pulmonary fibrosis with a nodule which is going to be followed within six months with repeat CT scan. The patient has never smoked. No exposure to any respiratory allergens. The patient's stress echo at high level of exercise was negative for ischemia. Echo was normal except for mitral valve prolapse. All her labs were negative and practically normal. The patient was put on Lexapro. The side effects of Lexapro including suicidal ideas with it discussed. Will start her on a smaller dose 5 and later on make it to 10. She has Ativan at home and advised it to take it with any panic type of odd feelings. The patient is to follow with me in three to four days. The patient is to see GI specialist for EGD and colonoscopy. The patient will be referred to pulmonary physician for pulmonary fibrosis. The patient doesn't have any evidence of biliary or liver cirrhosis. CONDITION: Stable. TIME SPENT: More than 60 minutes. MTDD
--- NOTE | 2018-10-06 13:33 | PN ---
CODING FOR BILLIN10/03/18 OBSERVATION - LEVEL 5 10/04/18 INTERMEDIATE 10/05/18 DISCHARGE MTDD
[2018-10-12] MEDS ORDERED: LEXAPRO PO SCH (21:00)
== END 2018-10-05 15:20 | disposition home or self-care (01) ==
LOC: MEDSURG B 14:02 → INTOOBSV 14:02
PROVIDERS: ADMIT Internal Medicine; ATTEND Internal Medicine
DX: J84.10 Pulmonary fibrosis, unspecified (principal); J43.9 Emphysema, unspecified; R91.1 Solitary pulmonary nodule; R06.02 Shortness of breath; F41.9 Anxiety disorder, unspecified; E03.9 Hypothyroidism, unspecified; D64.9 Anemia, unspecified; E78.5 Hyperlipidemia, unspecified; G47.00 Insomnia, unspecified; F41.0 Panic disorder [episodic paroxysmal anxiety]
CPT/HCPCS: 36415; 80053; 81001; 82550; 82553; 83880; 84439; 84443; 84484; 85025; 85379; 87338; 93005; 93010